=== PATIENT | female | born 1965 | race Caucasian/White ===

== ENCOUNTER 2017-11-17 11:50 | Emergency (ER) | payer BC ==
[~2017-11-17] VITALS: Ht 167.6 cm; Wt 69.4 kg
[~2017-11-17 11:50] MED LIST: CIPRO500 MG PO; EFFEXOR50 MG PO; GABAPENTIN100 M1 PO; LOMOTIL 0.025 M1 TA1 PO; MOTRIN800 MG PO; PREVACID30 MG PO; TRAMADOL HCL50 MG PO
[2017-11-17] MEDS ORDERED: CELECOXIB200 M1 PO (11:54)
[2017-11-17] MEDS ORDERED: CYCLOBENZAPRINE10 MG PO (11:54)
[2017-11-17] MEDS ORDERED: TRAMADOL HCL50 MG PO (11:55)
[2017-11-17 12:36] LABS: BASO % 0.2 % (0.0-1.0); EOS % 0.6 % (1.0-4.0); HEMATOCRIT 39.1 % (37.0-47.0); LYMPH % 42.5 % (27.0-41.0); MEAN CORPUSCULAR HGB 32.3 pg (27.0-31.0); MEAN CORPUSCULAR HGB CONC 33.2 g/dl (33.0-37.0); MEAN PLATELET VOLUME 9.6 fl (9.6-12.3); MONO # 0.5 10*3/uL (0.1-1.0); MONO % 10.4 % (3.0-9.0); NEUT # 2.2 10*3/uL (2.3-7.9); NEUT % 46.1 % (47.0-73.0); PLATELET COUNT AUTOMATED 245 10*3/uL (130-400); RED BLOOD COUNT 4.03 10*6/uL (4.10-5.10); WHITE BLOOD COUNT 4.7 10*3/uL (4.8-10.8)
[2017-11-17 12:54] LABS: ALBUMIN 3.7 gm/dl (3.1-4.5); ALKALINE PHOSPHATASE 76 U/L (45-117); BUN 12 mg/dl (7-24); CHLORIDE 105 mmol/L (98-107); CREATININE 0.65 mg/dL (0.55-1.02); LIPASE 84 U/L (73-393); POTASSIUM 3.8 mmol/L (3.5-5.1); SGOT/AST 12 IU/L (3-35); SGPT/ALT 22 U/L (12-78); SODIUM 140 mmol/L (136-145); TOTAL PROTEIN 6.9 gm/dL (6.4-8.2)
[2017-11-17 14:10] LABS: BILIRUBIN NEGATIVE (NEGATIVE); BLOOD NEGATIVE (NEGATIVE); CLARITY SL CLOUDY (CLEAR); COLOR YELLOW (YELLOW); GLUCOSE NEGATIVE (NEGATIVE); KETONE NEGATIVE (NEGATIVE); LEUKO ESTERASE NEGATIVE (NEGATIVE); NITRITE NEGATIVE (NEGATIVE); UROBILINOGEN 0.2 E.U./dl (0.2-1.0)
[2017-11-17 14:24] LABS: BACTERIA 2+; EPITHELIAL CELLS 20-25; RBC 0-2 rbc/hpf (0-2)
== END 2017-11-17 14:34 | disposition home or self-care (01) ==
LOC: ED 11:50
PROVIDERS: Nurse Practitioner Family
DX: K59.00 Constipation, unspecified (principal); F17.200 Nicotine dependence, unspecified, uncomplicated; Z90.711 Acquired absence of uterus with remaining cervical stump; Z79.899 Other long term (current) drug therapy

== ENCOUNTER 2018-02-08 12:42 | Inpatient (IN) | payer BC ==
[~2018-02-08] VITALS: Ht 167.6 cm; Wt 70.9 kg
[~2018-02-08 12:42] MED LIST changes: +CELECOXIB200 M1 PO; +CYCLOBENZAPRINE10 MG PO
[2018-02-08 12:43] VITALS: BP 131/69
[2018-02-08 13:20] LABS: BASO % 0.1 % (0.0-1.0); EOS # 0.1 10*3/uL (0.0-0.4); EOS % 0.7 % (1.0-4.0); HEMATOCRIT 36.2 % (37.0-47.0); HEMOGLOBIN 11.7 g/dl (12.0-16.0); LYMPH # 2.1 10*3/uL (1.3-4.4); LYMPH % 22.9 % (27.0-41.0); MEAN CELL VOLUME 99.5 fl (81.0-99.0); MEAN CORPUSCULAR HGB 32.1 pg (27.0-31.0); MEAN CORPUSCULAR HGB CONC 32.3 g/dl (33.0-37.0); MEAN PLATELET VOLUME 10.3 fl (9.6-12.3); MONO # 1.1 10*3/uL (0.1-1.0); MONO % 11.7 % (3.0-9.0); NEUT # 5.8 10*3/uL (2.3-7.9); NEUT % 64.4 % (47.0-73.0); PLATELET COUNT AUTOMATED 218 10*3/uL (130-400); RED BLOOD COUNT 3.64 10*6/uL (4.10-5.10); RED CELL DISTRI WIDTH 13.6 % (0-14.5)
[2018-02-08 13:43] LABS: ALBUMIN 3.3 gm/dl (3.1-4.5); ALKALINE PHOSPHATASE 87 U/L (45-117); BUN 13 mg/dl (7-24); CHLORIDE 109 mmol/L (98-107); CREATININE 0.65 mg/dL (0.55-1.02); POTASSIUM 3.8 mmol/L (3.5-5.1); SGOT/AST 6 IU/L (3-35); SGPT/ALT 17 U/L (12-78); SODIUM 144 mmol/L (136-145); TOTAL PROTEIN 6.9 gm/dL (6.4-8.2)
[2018-02-08 13:45] LABS: TROPONIN I < 0.015 ng/ml (<0.045)
[2018-02-08 13:46] VITALS: BP 123/64
[2018-02-08 15:26] VITALS: BP 113/75
[2018-02-08 16:00] VITALS: BP 108/71
[2018-02-08 20:00] VITALS: BP 110/61
[2018-02-09] VITALS: BP 105/59
[2018-02-09 07:44] LABS: BASO % 0.2 % (0.0-1.0); EOS # 0.1 10*3/uL (0.0-0.4); HEMATOCRIT 35.9 % (37.0-47.0); HEMOGLOBIN 11.7 g/dl (12.0-16.0); LYMPH % 24.3 % (27.0-41.0); MEAN CELL VOLUME 99.2 fl (81.0-99.0); MEAN CORPUSCULAR HGB 32.3 pg (27.0-31.0); MEAN CORPUSCULAR HGB CONC 32.6 g/dl (33.0-37.0); MEAN PLATELET VOLUME 10.4 fl (9.6-12.3); MONO # 0.9 10*3/uL (0.1-1.0); MONO % 10.6 % (3.0-9.0); NEUT # 5.3 10*3/uL (2.3-7.9); NEUT % 63.4 % (47.0-73.0); PLATELET COUNT AUTOMATED 228 10*3/uL (130-400); RED BLOOD COUNT 3.62 10*6/uL (4.10-5.10); RED CELL DISTRI WIDTH 13.4 % (0-14.5); WHITE BLOOD COUNT 8.4 10*3/uL (4.8-10.8)
[2018-02-09 08:00] VITALS: BP 109/58
[2018-02-09 08:03] LABS: BUN 8 mg/dl (7-24); CHLORIDE 109 mmol/L (98-107); CHOLESTEROL 148 mg/dL (<200); CREATININE 0.56 mg/dL (0.55-1.02); FREE T4 0.92 ng/dl (0.76-1.46); HDL CHOLESTEROL 53 mg/dl (40-60); LDL CHOLESTEROL 76 mg/dL (9-159); PHOSPHOROUS 3.3 mg/dL (2.5-4.9); POTASSIUM 3.9 mmol/L (3.5-5.1); SODIUM 142 mmol/L (136-145); TRIGLYCERIDES 93 mg/dl (<150); VLDL CHOLESTEROL 19 mg/dL (6-40)
[2018-02-09 10:02] LABS: VITAMIN D, 25-HYDROXY 36.1 ng/mL (30-100)
[2018-02-09] MEDS ORDERED: LEVOFLOXACIN500 MG PO (11:07)
[2018-02-09] MEDS ORDERED: PREDNISONE10 MG PO (11:07)
[2018-02-09] MEDS ORDERED: CYCLOBENZAPRINE10 MG PO (11:07)
[2018-02-09] MEDS ORDERED: GUAIFEN-CODEIN118 ML PO (11:08)
[2018-02-09] MEDS ORDERED: SINGULAIR10 M1 PO (11:18)
== END 2018-02-09 12:01 | disposition home or self-care (01) | DRG 206 ==
LOC: ED 12:42 → EDHOLD 15:07 → 5E 15:07
PROVIDERS: Emergency Medicine; Internal Medicine
DX: M94.0 Chondrocostal junction syndrome [Tietze] (principal); E87.8 Other disorders of electrolyte and fluid balance, not elsewhere classified; J44.0 Chronic obstructive pulmonary disease with (acute) lower respiratory infection; D53.9 Nutritional anemia, unspecified; J20.9 Acute bronchitis, unspecified; F17.200 Nicotine dependence, unspecified, uncomplicated; Z90.710 Acquired absence of both cervix and uterus

== ENCOUNTER 2025-07-28 10:42 | Emergency (ER) | payer OTHER ==
[~2025-07-28] VITALS: Ht 167.6 cm; Wt 65.8 kg
[~2025-07-28 10:42] MED LIST changes: +GUAIFEN-CODEIN118 ML PO; +LEVOFLOXACIN500 MG PO; +PREDNISONE10 MG PO; +SINGULAIR10 M1 PO
[2025-07-28] MEDS ORDERED: ALBUTEROL 8 GM INHALER INH ONE (11:50)
[2025-07-28 12:18] LABS: BASO # 0.0 10*3/uL (0.0-0.1); BASO % 0.2 % (0.0-1.0); EOS # 0.0 10*3/uL (0.0-0.4); EOS % 0.6 % (1.0-4.0); MEAN CELL VOLUME 100.0 fl (81.0-99.0); MEAN CORPUSCULAR HGB 32.9 pg (27.0-31.0); MEAN PLATELET VOLUME 9.5 fl (9.6-12.3); MONO # 0.7 10*3/uL (0.1-1.0); MONO % 10.3 % (3.0-9.0); NEUT # 4.4 10*3/uL (2.3-7.9); NEUT % 66.8 % (47.0-73.0); NUCLEATED RED BLOOD CELL 0.0 % (0.0-0.0); NUCLEATED RED BLOOD CELL 0.0 10*3/uL (0.0-0.0); PLATELET COUNT AUTOMATED 265 10*3/uL (130-400); RED CELL DISTRI WIDTH 13.1 % (0-14.5)
[2025-07-28 12:37] LABS: BUN 8 mg/dl (9-23); SGPT/ALT 18 U/L (5-49)
[2025-07-28] MEDS ORDERED: AMOX-CLAV 875-1 EACH PO (12:59)
[2025-07-28] MEDS ORDERED: Amoxicillin/Clavulanate Pota 875 MG TAB PO ONE (13:05)
== END 2025-07-28 13:18 | disposition home or self-care (01) ==
LOC: ED 10:42
PROVIDERS: Nurse Practitioner
DX: J32.9 Chronic sinusitis, unspecified (principal); J44.9 Chronic obstructive pulmonary disease, unspecified; F17.210 Nicotine dependence, cigarettes, uncomplicated; Z90.710 Acquired absence of both cervix and uterus; Z98.890 Other specified postprocedural states; Z20.822 Contact with and (suspected) exposure to COVID-19